=== PATIENT | female | born 1965 | race Two or more races ===

== ENCOUNTER 2022-05-22 07:00 | Inpatient (IN) | payer OTHER ==
[~2022-05-22] VITALS: Ht 165.1 cm; Wt 108.4 kg
[2022-05-22] MEDS ORDERED: CARVEDILOL12.5 M1 PO (09:52)
[2022-05-22] MEDS ORDERED: ZESTRIL40 M1 PO (09:52)
[2022-05-22] MEDS ORDERED: SYNTHROID112 MCG PO (09:52)
[2022-05-22] MEDS ORDERED: MULTIVI PO (09:53)
[2022-05-22] MEDS ORDERED: SPIRONOLACTONE25 MG PO (09:53)
[2022-05-31] MEDS ORDERED: MULTI VITAMIN1 EACH (10:07)
[2022-05-31] MEDS ORDERED: [UNRECOGNIZED DRUG - OTHER] (10:33)
[2022-05-31] MEDS ORDERED: [UNRECOGNIZED DRUG - OTHER] (10:33)
[2022-05-31] MEDS ORDERED: [UNRECOGNIZED DRUG - OTHER] (10:34)
[2022-06-01] MEDS ORDERED: ELIQUIS2.5 MG PO (17:48)
[2022-06-01] MEDS ORDERED: PERCOCET 5-3251 EACH PO (17:48)
[2022-06-01] MEDS ORDERED: DUI500 PO (17:48)
== END 2022-06-01 21:53 | DRG 470 ==
LOC: SURH 05-30 06:00 → O/R 05-30 06:47 → SURG 05-30 06:47 → SURH 05-30 07:00 → EDBD 05-30 07:00 → SURG 05-30 17:02
PROVIDERS: ADMIT Orthopaedic Surgery; ATTEND Orthopaedic Surgery
PROC: 0SRC0J9 Replacement of Right Knee Joint with Synthetic Substitute, Cemented, Open Approach (ICD-10-PCS; principal; 2022-05-30 06:00)
DX: M17.11 Unilateral primary osteoarthritis, right knee (principal); M22.11 Recurrent subluxation of patella, right knee; M81.0 Age-related osteoporosis without current pathological fracture; E66.9 Obesity, unspecified